=== PATIENT | female | born 1980 | race Caucasian/White ===

== ENCOUNTER 2017-07-27 12:46 | Emergency (ER) | payer BC ==
--- NOTE | 2017-07-27 13:34 | UC ---
Eye Complaint HPI - HPI Summary HPI Summary: 36 female presents to with complaints of bilateral eye crusting, discharge and irritation/redness that has been ongoing for the past 2 days. Patient states symptoms began in right eye and then moved into left eye today. Patient tried 2 uses of old ~ 1 year old erythromycin ointment without much relief. King changes to vision, has been blurry with discharge. Also using anti- redness eye drops with little relief. Has been battling cold symptoms over the past few days which have seemed to improved. No other complaints. No concern for any FB into eyes. No PMHx. Is currently . Does not wear contacts or glasses. - History of Current Complaint Chief Complaint: UCEye Stated Complaint: EYE COMPLAINT Time Seen by Provider: 07/27/17 13:11 Hx Obtained From: Patient Hx Last Menstrual Period: 06/11/17 Onset/Duration: Sudden Onset, Lasting Days, Still Present, Worse Since Timing: Constant Severity Initially: Mild Severity Currently: Moderate Pain Intensity: 3 Pain Scale Used: 0-10 Numeric - irritation Location of Injury: Conjunctiva Aggravating Factor(s): Eye Drops Alleviating Factor(s): Nothing Associated Signs And Symptoms: Positive: Drainage (Purulent) - Allergies/Home Medications Allergies/Adverse Reactions: Allergies Allergy/AdvReac Type Severity Reaction Status Date / Time Vancomycin Allergy See Comment Verified 07/27/17 13:20 Home Medications: Home Medications Acetaminophen TAB* [Tylenol TAB*] 650 mg PO Q4H PRN 07/27/17 [History Confirmed 07/27/17] Erythromycin OPHTH.OINT* [Ilotycin OPHTH.OINT*] 1 applic BOTH EYES BEDTIME 07/27 [History Confirmed 07/27/17] Labetalol TAB* [Trandate TAB*] 300 mg PO BID 07/27/17 [History Confirmed ] Norethindrone (Contraceptive) [Merlene] 0.35 mg PO DAILY 07/27/17 [History Confirmed 07/27/17] Ranitidine HCl [Ranitidine Maximum Streng] 150 mg PO BID 07/27/17 [History Confirmed 07/27/17] PMH/Surg Hx/FS Hx/Imm Hx - Additional Past Medical History Additional PMH: Denies PMHx, no DM or asthma - Surgical History Surgical History: Yes Surgery Procedure, Year, and Place: R/T INFERTILITY. C-SECT X 1 - Family History Known Family History: Positive: None - Social History Alcohol Use: Rare Substance Use Type: None Smoking Status (MU): Former Smoker When Did the Patient Quit Smoking/Using Tobacco: 2010 - Immunization History Most Recent Influenza Vaccination: FOR 2016 SEASON Review of Systems Constitutional: Negative Eyes: Blurred Vision, Drainage - bl, Eye Redness ENT: Sore Throat - improving, Ear Ache - improving, Nasal Discharge Respiratory: Cough - improving Cardiovascular: Negative Genitourinary: Negative Musculoskeletal: Negative All Other Systems Reviewed And Are Negative: Yes Physical Exam Triage Information Reviewed: Yes Appearance: No Pain Distress, Well-Nourished, Ill-Appearing Vital Signs: Initial Vital Signs Temp 98.6 F 07/27/17 13:10 Pulse 78 07/27/17 13:10 Resp 22 07/27/17 13:10 BP 138/76 07/27/17 13:10 Pulse Ox 97 07/27/17 13:10 Vital Signs Reviewed: Yes Eyes: Positive: Conjunctiva Inflamed, Discharge - b/l ENT: Positive: Hearing grossly normal, Pharynx normal, TMs normal Neck: Positive: Supple, Nontender Respiratory: Positive: Chest non-tender, Lungs clear, Normal breath sounds, No respiratory distress, No accessory muscle use Cardiovascular: Positive: RRR, No Murmur, Pulses Normal Musculoskeletal: Positive: Strength Intact Neurological: Positive: Alert Skin Exam: Normal Eye Complaint Course/Dx - Course Course Of Treatment: appears to be suffering from improving rhinosinusitis and bilateral conjunctivitis. will treat with opthalmic antibiotic. warm compresses. wash hands, pillow, towels. aware of worsening signs and symptoms to watch out for. no concern for other etiolgy at this time. follow up with pcp/ optho if needed. - Differential Dx/Diagnosis Differential Diagnosis/HQI/PQRI: Conjunctivitis, Keratitis Provider Diagnoses: bilateral bacterial conjunctivitis Discharge - Discharge Plan Condition: Good Disposition: HOME Prescriptions: Polymyx/Trimethoprim OPTH* [Polytrim OPHTH*] 1 drop BOTH EYES Q3H #1 btl Patient Education Materials: Rhinosinusitis (ED), Conjunctivitis (ED) Referrals: Farrah Christensen MD [Primary Care Provider] - Additional Instructions: Use prescribed eye drops as directed to help with infection, in both eyes for 7 days. You may decrease use on days 5-7 to three times daily. Encourage warm compresses and washing hands frequently. Avoid touching eyes. Continue saline rinses and teas. Wash all towels, pillows, blankets, etc with hot water to avoid spread of germs. Increase fluid intake and get plenty of rest. Any new or worsening signs/symptoms please seek medical attention, as discussed. Follow up with pcp for recheck.
== END 2017-07-27 13:42 | disposition home or self-care (01) ==
LOC: UCCORT 12:46
DX: H10.023 Other mucopurulent conjunctivitis, bilateral (principal); Z87.891 Personal history of nicotine dependence; Z88.1 Allergy status to other antibiotic agents
CPT/HCPCS: 99202; G0463

== ENCOUNTER 2019-01-05 11:14 | Emergency (ER) | payer BC ==
[2019-01-05 12:50] VITALS: BP 132/69
--- NOTE | 2019-01-05 13:10 | UC ---
UC General HPI - HPI Summary HPI Summary: PT STATES HEAD COLD FOR FEW DAYS. TODAY, EYE CRUSTED SHUT AND RED. HER SON HAS PINK EYE. + HEADACHE. VISION BLURRY FROM DISCHARGE. NO CONTACT LENS USE. THINKS GLANDS ON HER NECK ARE SWOLLEN. SHE ADMITS TO A SCRATCHY THROAT FROM POST NASAL DRIP. - History of Current Complaint Chief Complaint: UCGeneralIllness Stated Complaint: BI LAT EYE CONCERN Time Seen by Provider: 01/05/19 13:02 Hx Obtained From: Patient Hx Last Menstrual Period: 12/17/18 Onset/Duration: Gradual Onset Timing: Constant Pain Intensity: 4 Associated Signs & Symptoms: Negative: Fever - Allergy/Home Medications Allergies/Adverse Reactions: Allergies Allergy/AdvReac Type Severity Reaction Status Date / Time MS Vancomycin [Vancomycin] Allergy See Comment Verified 07/27/17 13:20 Home Medications: Home Medications Bcp 01/05/19 [History] Multivit with Iron,Minerals [Super Multiple] 1 each PO DAILY 01/05/19 [History Confirmed 01/05/19] PMH/Surg Hx/FS Hx/Imm Hx Cardiovascular History: Hypertension GI/ History: Gastroesophageal Reflux - Surgical History Surgical History: Yes Surgery Procedure, Year, and Place: R/T INFERTILITY. C-SECT X 2 - Family History Known Family History: Positive: None - Social History Lives: With Family Alcohol Use: Rare Substance Use Type: None Smoking Status (MU): Former Smoker When Did the Patient Quit Smoking/Using Tobacco: 2010 - Immunization History Most Recent Influenza Vaccination: FOR 2016 SEASON Vaccination Up to Date: Yes Review of Systems All Other Systems Reviewed And Are Negative: Yes Constitutional: Negative: Fever Skin: Negative: Rash Eyes: Positive: Blurred Vision, Drainage, Eye Redness. Negative: Diplopia, Photophobia ENT: Positive: Sore Throat - SCRATCHY, Sinus Congestion Neurological: Positive: Headache Physical Exam Triage Information Reviewed: Yes Appearance: Well-Appearing Vital Signs: Initial Vital Signs Temp 97.7 F 01/05/19 12:43 Pulse 88 01/05/19 12:43 Resp 16 01/05/19 12:43 BP 132/69 01/05/19 12:43 Pulse Ox 100 01/05/19 12:43 Vital Signs Reviewed: Yes Eyes: Positive: Other: - No auricular adenopathy, periorbital edema or rash. PERRL, EOMI. Conjunctiva injected and 2 with yellow exudates. AC's clear. ENT: Positive: Pharynx normal, Nasal congestion, TMs normal. Negative: Nasal drainage Neck: Positive: Supple, Nontender, No Lymphadenopathy Respiratory: Positive: Lungs clear, Normal breath sounds Cardiovascular: Positive: RRR Abdomen Description: Positive: Nontender Musculoskeletal: Positive: ROM Intact Neurological: Positive: Alert Psychological: Positive: Age Appropriate Behavior Skin Exam: Normal Course/Dx - Diagnoses Provider Diagnosis: URI (upper respiratory infection), Conjunctivitis Discharge - Sign-Out/Discharge Documenting (check all that apply): Patient Departure All imaging exams completed and their final reports reviewed: No Studies - Discharge Plan Condition: Stable Disposition: HOME Prescriptions: Polymyx/Trimethoprim OPTH* [Polytrim OPHTH*] 1 drop BOTH EYES Q3H 7 Days #1 btl Patient Education Materials: Upper Respiratory Infection (DC), Conjunctivitis ( ED) Additional Instructions: FOLLOW UP WITH YOUR PCP AT [facility] IN [place] IF NOT BETTER IN 5 - 7 DAYS OR SOONER IF WORSE. - Billing Disposition and Condition Condition: STABLE Disposition: Home
== END 2019-01-05 13:20 | disposition home or self-care (01) ==
LOC: UCCORT 11:14
DX: H10.9 Unspecified conjunctivitis (principal); J06.9 Acute upper respiratory infection, unspecified; I10 Essential (primary) hypertension; Z88.1 Allergy status to other antibiotic agents; Z87.891 Personal history of nicotine dependence
CPT/HCPCS: 99212; G0463

== ENCOUNTER 2019-10-19 11:20 | Emergency (ER) | payer BC ==
[2019-10-19 12:36] VITALS: BP 135/70
--- NOTE | 2019-10-19 12:45 | UC ---
Throat Pain/Nasal Carlos HPI - HPI Summary HPI Summary: sore throat x 1 day pain is severe , 8 out 10 , difficulty swallowing worse with swallowing, better with Tylenol no cough , no runny nose, no fever, + chills and mild body aches - History of Current Complaint Chief Complaint: UCRespiratory Stated Complaint: SORE THROAT, SWOLLEN NODES Time Seen by Provider: 10/19/19 12:37 Hx Obtained From: Patient Hx Last Menstrual Period: 10/03/19 ?: No Onset/Duration: Gradual Onset, Lasting Days - 1, Still Present Severity: Moderate Pain Intensity: 6 Cough: None Associated Signs & Symptoms: Negative: Hoarseness, Sinus Discomfort, Nasal Discharge, Fever, Rash - Allergies/Home Medications Allergies/Adverse Reactions: Allergies Allergy/AdvReac Type Severity Reaction Status Date / Time vancomycin Allergy See Comment Verified 10/19/19 12:32 Home Medications: Home Medications Labetalol TAB* [Trandate TAB*] 300 mg PO BID 07/27/17 [History Confirmed ] Bcp 1 tab DAILY 01/05/19 [History Confirmed 10/19/19] Amoxicillin PO (*) [Amoxicillin 875 MG (*)] 875 mg PO BID #20 tab 10/19/19 [Rx] Hydrochlorothiazide TAB* [Hydrodiuril TAB*] 10 mg PO DAILY 10/19/19 [History Confirmed 10/19/19] Omeprazole 1 tab PO DAILY 10/19/19 [History Confirmed 10/19/19] PMH/Surg Hx/FS Hx/Imm Hx - Additional Past Medical History Additional PMH: PCOS , Cardiovascular History: Hypertension Respiratory History: Asthma GI/ History: Gastroesophageal Reflux - Surgical History Surgical History: Yes Surgery Procedure, Year, and Place: R/T INFERTILITY. C-SECT X 2 - Family History Known Family History: Positive: Hypertension - Social History Alcohol Use: Rare Substance Use Type: None Smoking Status (MU): Former Smoker When Did the Patient Quit Smoking/Using Tobacco: 2010 - Immunization History Most Recent Influenza Vaccination: FOR 2016 SEASON Vaccination Up to Date: Yes Review of Systems All Other Systems Reviewed And Are Negative: Yes Constitutional: Positive: Chills. Negative: Fever, Fatigue Skin: Positive: Negative Eyes: Positive: Negative ENT: Positive: Sore Throat. Negative: Nasal Discharge Respiratory: Negative: Cough Is Patient Immunocompromised?: No Physical Exam Triage Information Reviewed: Yes Appearance: Pain Distress, Obese Vital Signs: Initial Vital Signs Temp 99.3 F 10/19/19 12:33 Pulse 96 10/19/19 12:33 Resp 16 10/19/19 12:33 BP 135/70 10/19/19 12:33 Pulse Ox 99 10/19/19 12:33 Vital Signs Reviewed: Yes Eye Exam: Normal Eyes: Positive: Conjunctiva Clear ENT: Positive: Normal ENT inspection, Hearing grossly normal, Pharyngeal erythema, TMs normal Neck: Positive: Supple, Nontender, No Lymphadenopathy Respiratory: Positive: Chest non-tender, Lungs clear, Normal breath sounds Cardiovascular: Positive: RRR, No Murmur, Pulses Normal Skin Exam: Normal Throat Pain/Nasal Course/Dx - Differential Dx/Diagnosis Provider Diagnosis: Strep pharyngitis Discharge ED - Sign-Out/Discharge Documenting (check all that apply): Patient Departure All imaging exams completed and their final reports reviewed: No Studies - Discharge Plan Condition: Stable Disposition: HOME Prescriptions: Amoxicillin PO (*) [Amoxicillin 875 MG (*)] 875 mg PO BID #20 tab Patient Education Materials: Strep Throat (ED) Referrals: No Primary Care Phys,NOPCP [Primary Care Provider] - If Needed - Billing Disposition and Condition Condition: STABLE Disposition: Home
== END 2019-10-19 13:06 | disposition home or self-care (01) ==
LOC: UCCORT 11:20
DX: J02.0 Streptococcal pharyngitis (principal); I10 Essential (primary) hypertension; J45.909 Unspecified asthma, uncomplicated; K21.9 Gastro-esophageal reflux disease without esophagitis; Z88.1 Allergy status to other antibiotic agents; Z79.899 Other long term (current) drug therapy; Z87.891 Personal history of nicotine dependence
CPT/HCPCS: 87651; 99212; G0463